=== PATIENT | female | born 1985 | race Caucasian/White ===

== ENCOUNTER 2016-08-11 13:46 | Emergency (ER) | payer BC ==
[2016-08-11 14:10] VITALS: BP 125/52
[2016-08-11] MEDS ORDERED: Sodium Chloride 0.9% 10 ML Syringe FLUSH PRN (14:27)
[2016-08-11] MEDS ORDERED: HYDROmorphone 0.5 MG/0.5 ML Syringe IVPUSH ONE (14:28)
[2016-08-11] MEDS ORDERED: Sodium Chloride 0.9% 1,000 ML IV ONE (14:28)
[2016-08-11] MEDS ORDERED: Ondansetron 4 MG/2 ML SDV IVPUSH ONE (14:28)
--- NOTE | 2016-08-11 14:37 | EDM.PDOC ---
ED HPI GENERAL MEDICAL PROBLEM - General Chief Complaint: INSECT CONTROL INSPECTOR Problem Stated Complaint: 8 WEEKS PREG/BLEEDING Time Seen by Provider: 08/11/16 14:13 Source of Information: Reports: Patient History Limitations: Reports: No Limitations - History of Present Illness INITIAL COMMENTS - FREE TEXT/NARRATIVE: The patient is a 31-year-old female who presents to the ED complaining of vaginal bleeding while 8 weeks . Patient states last night had light spotting with no abdominal discomfort. States late this morning developed heavy vaginal bleeding with abdominal cramping. Pain is localized rated a 8/10. She saturated 2 pads since onset and noticed increased bleeding throughout her drive to the emergency room. Last menstrual period was June 15 with a due date of March 22, 2016. was confirmed in office by her INSECT CONTROL INSPECTOR specialist. She has not had any ultrasounds obtained. She is on vitamins. history 5, para 3, miscarriage 2, zero. Patient denies fever/chills, nausea/vomiting, pain with urination, or any additional complaints. Patient recently completed a course of antibiotics to treat UTI. Patient states she has frequent UTIs with . 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: Reports: Other (see below) (none stated) Lower Abdomen Pain Score (Numeric/FACES): 8 - Related Data Allergies Allergy/AdvReac Type Severity Reaction Status Date / Time No Known Allergies Allergy Verified 08/11/16 14:04 Home Meds: Home Meds Nitrofurantoin Monohyd/M-Cryst [Macrobid 100 mg Capsule] 100 mg PO BID #10 capsule 08/11/16 [Rx] PNV95/Ferrous Fumarate/FA [ Tablet] 1 tab PO DAILY 08/11/16 [History] Past Medical History - Past Surgical History Female Surgical History: Reports: Section, Other (See Below) Other Female Surgeries/Procedures: 2 miscarriages Social & Family History - Tobacco Use Smoking Status *Q: Current Every Day Smoker Years of Tobacco use: 17 Packs/Tins Daily: 1 - Caffeine Use Caffeine Use: Reports: Coffee, Soda - Recreational Drug Use Recreational Drug Use: No ED ROS GENERAL - Review of Systems Review Of Systems: See Below Constitutional: Reports: No Symptoms Respiratory: Reports: No Symptoms Cardiovascular: Reports: No Symptoms GI/Abdominal: Reports: Abdominal Pain. Denies: Melena, Nausea (lower Horacio) : Reports: Other (history of UTIs). Denies: Dysuria, Flank Pain, Frequency, Hematuria Musculoskeletal: Denies: Back Pain Neurological: Reports: No Symptoms Hematologic/Lymphatic: Denies: Easy Bleeding ED EXAM - Physical Exam Exam: See Below Exam Limited By: No Limitations General Appearance: Alert, WD/WN, No Apparent Distress Ears: Hearing Grossly Normal Nose: Normal Inspection Throat/Mouth: Normal Voice, No Airway Compromise Neck: Normal Inspection, Supple Respiratory/Chest: No Respiratory Distress, Lungs Clear, Normal Breath Sounds, No Accessory Muscle Use, Chest Non-Tender Cardiovascular: Normal Peripheral Pulses, Regular Rate, Rhythm GI/Abdominal: Normal Bowel Sounds, Soft, No Organomegaly, No Distention, Tender (suprapubic region) (Female) Exam: Other (deferred) Back Exam: Normal Inspection. No: CVA Tenderness (L), CVA Tenderness (R) Extremities: Normal Inspection, Non-Tender, No Pedal Edema Neurological: Alert, Oriented, CN II-XII Intact, Normal Cognition, No Motor/ Sensory Deficits Psychiatric: Normal Affect, Normal Mood Skin Exam: Warm, Dry, Intact, Normal Color, No Rash Course - Vital Signs Last Recorded V/S: Last Vital Signs Temp 97.4 F 08/11/16 14:09 Pulse 82 08/11/16 14:09 Resp 20 08/11/16 14:09 BP 125/52 L 08/11/16 14:09 Pulse Ox 100 08/11/16 14:09 - Orders/Labs/Meds Orders: Active Orders 24 hr Category Date Time Status Peripheral IV Care [RC] . DIRECTED Care 08/11/16 14:27 Active OB Transvaginal [US] Stat Exams 08/11/16 16:04 Taken CULTURE URINE [RM] Stat Lab 08/11/16 14:45 Received Peripheral IV Insertion Adult [OM.PC] Stat Oth 08/11/16 14:27 Ordered Labs: Laboratory Tests 08/11/16 08/11/16 08/11/16 Range/Units 14:30 14:30 14:30 WBC 10.27 H (3.98-10.04) K/mm3 RBC 4.99 (3.98-5.22) M/mm3 Hgb 13.4 (11.2-15.7) gm/L Hct 41.1 (34.1-44.9) % MCV 82.4 (79.4-94.8) fl MCH 26.9 (25.6-32.2) pg MCHC 32.6 (32.2-35.5) g/dl RDW Std Deviation 46.0 (36.4-46.3) fL Plt Count 236 (182-369) K/mm3 MPV 11.2 (9.4-12.3) fl Neut % (Auto) 73.2 H (34.0-71.1) % Lymph % (Auto) 16.7 L (19.3-51.7) % Haskell % (Auto) 8.1 (4.7-12.5) % Eos % (Auto) 1.4 (0.7-5.8) Baso % (Auto) 0.4 (0.1-1.2) % Neut # (Auto) 7.53 H (1.56-6.13) K/mm3 Lymph # (Auto) 1.71 (1.18-3.74) K/mm3 Haskell # (Auto) 0.83 H (0.24-0.36) K/mm3 Eos # (Auto) 0.14 (0.04-0.36) K/mm3 Baso # (Auto) 0.04 (0.01-0.08) K/mm3 Sodium 143 (136-145) mEq/L Potassium 3.8 (3.5-5.1) mEq/L Chloride 110 H (98-107) mEq/L Carbon Dioxide 26 (21-32) mEq/L Anion Gap 10.8 (5-15) BUN 9 (7-18) mg/dL Creatinine 0.9 (0.55-1.02) mg/dL Est Cr Clr Drug Dosing 71.63 mL/min Estimated GFR (MDRD) > 60 (>60) mL/min BUN/Creatinine Ratio 10.0 L (14-18) Glucose 108 H (74-106) mg/dL Calcium 8.6 (8.5-10.1) mg/dL Total Bilirubin 0.4 (0.2-1.0) mg/dL AST 11 L (15-37) U/L ALT 23 (14-59) U/L Alkaline Phosphatase 68 (46-116) U/L C-Reactive Protein 1.2 H* (<1.0) mg/dL Total Protein 6.5 (6.4-8.2) g/dl Albumin 3.4 (3.4-5.0) g/dl Globulin 3.1 gm/dL Albumin/Globulin Ratio 1.1 (1-2) HCG, Qual Positive H (NEGATIVE) HCG, Quant 3344.0 mIU/mL Urine Color (Yellow) Urine Appearance (Clear) Urine pH (5.0-8.0) Ur Specific Clyman (1.005-1.030) Urine Protein (Negative) Urine Glucose (UA) (Negative) Urine Ketones (Negative) Urine Occult Blood (Negative) Urine Nitrite (Negative) Urine Bilirubin (Negative) Urine Urobilinogen (0.2-1.0) Ur Leukocyte Esterase (Negative) Urine RBC (0-5) /hpf Urine WBC (0-5) /hpf Urine WBC Clumps (NOT SEEN) /hpf Ur Epithelial Cells Ur Squamous Epith Cells (0-5) /hpf Urine Bacteria (FEW) /hpf Urine Mucus (FEW) /hpf Blood Type Gel Antibody Screen 08/11/16 08/11/16 Range/Units 14:30 14:45 WBC (3.98-10.04) K/mm3 RBC (3.98-5.22) M/mm3 Hgb (11.2-15.7) gm/L Hct (34.1-44.9) % MCV (79.4-94.8) fl MCH (25.6-32.2) pg MCHC (32.2-35.5) g/dl RDW Std Deviation (36.4-46.3) fL Plt Count (182-369) K/mm3 MPV (9.4-12.3) fl Neut % (Auto) (34.0-71.1) % Lymph % (Auto) (19.3-51.7) % Haskell % (Auto) (4.7-12.5) % Eos % (Auto) (0.7-5.8) Baso % (Auto) (0.1-1.2) % Neut # (Auto) (1.56-6.13) K/mm3 Lymph # (Auto) (1.18-3.74) K/mm3 Haskell # (Auto) (0.24-0.36) K/mm3 Eos # (Auto) (0.04-0.36) K/mm3 Baso # (Auto) (0.01-0.08) K/mm3 Sodium (136-145) mEq/L Potassium (3.5-5.1) mEq/L Chloride (98-107) mEq/L Carbon Dioxide (21-32) mEq/L Anion Gap (5-15) BUN (7-18) mg/dL Creatinine (0.55-1.02) mg/dL Est Cr Clr Drug Dosing mL/min Estimated GFR (MDRD) (>60) mL/min BUN/Creatinine Ratio (14-18) Glucose (74-106) mg/dL Calcium (8.5-10.1) mg/dL Total Bilirubin (0.2-1.0) mg/dL AST (15-37) U/L ALT (14-59) U/L Alkaline Phosphatase (46-116) U/L C-Reactive Protein (<1.0) mg/dL Total Protein (6.4-8.2) g/dl Albumin (3.4-5.0) g/dl Globulin gm/dL Albumin/Globulin Ratio (1-2) HCG, Qual (NEGATIVE) HCG, Quant mIU/mL Urine Color Red H (Yellow) Urine Appearance Turbid H (Clear) Urine pH 8.5 H (5.0-8.0) Ur Specific [place]man 1.020 (1.005-1.030) Urine Protein 3+ H (Negative) Urine Glucose (UA) Negative (Negative) Urine Ketones Trace H (Negative) Urine Occult Blood 3+ H (Negative) Urine Nitrite Positive H (Negative) Urine Bilirubin 2+ H (Negative) Urine Urobilinogen 1.0 (0.2-1.0) Ur Leukocyte Esterase 3+ H (Negative) Urine RBC Too numerous to cnt H (0-5) /hpf Urine WBC 10-20 H (0-5) /hpf Urine WBC Clumps Rare (NOT SEEN) /hpf Ur Epithelial Cells Not Reportable Ur Squamous Epith Cells 0-5 (0-5) /hpf Urine Bacteria Moderate H (FEW) /hpf Urine Mucus Not seen (FEW) /hpf Blood Type A POSITIVE Gel Antibody Screen Negative Meds: Medications Discontinued Medications Generic Name Dose Route Start Last Admin Trade Name Denis PRN Reason Stop Dose Admin Hydromorphone HCl 0.25 mg 08/11/16 14:28 08/11/16 14:48 Dilaudid IVPUSH 08/11/16 14:29 0.25 mg ONETIME ONE Administration Sodium Chloride 1,000 mls @ 999 mls/hr 08/11/16 14:28 08/11/16 14:47 Normal Saline IV 08/11/16 15:28 999 mls/hr ONETIME ONE Administration Nitrofurantoin Macrocrystals 100 mg 08/11/16 18:15 08/11/16 18:34 Macrobid PO 08/11/16 18:16 100 mg ONETIME ONE Administration Ondansetron HCl 4 mg 08/11/16 14:28 08/11/16 14:47 Zofran IVPUSH 08/11/16 14:29 4 mg ONETIME ONE Administration Sodium Chloride 10 ml 08/11/16 14:27 08/11/16 14:49 Saline Flush FLUSH 10 ml ASDIRECTED PRN Administration Keep Vein Open - Re-Assessments/Exams Free Text/Narrative Re-Assessment/Exam: 08/11/16 14:31 Ordered peripheral IV with normal saline 999 mls/hr, Zofran 4 mg IVP, and Dilaudid 0.25 mg IVP. Initial labs include: CBC, chem 14, CRP, UA, and hCG quantitative, HCG qualitative, and type and screen. Per nursing patient refused in and out cath. 08/11/16 15:35 less reviewed: White cell count 10.27, hemoglobin 13.4, percent is 73.2, neutrophil number simplify 3, hCG was positive. UA revealed occult blood 3+, nitrites positive, leukocyte esterase positive, RBCs too many to count , WBC 10-20, WBC clumps rare. Ordered urine culture. Remaining labs are pending. C14 was essentially normal. HCG quantitative 3344. OB transvaginal ultrasound. ultrasound impression: There is a cystic area in the uterus that may be gestational sac. Based on last menstrual period there should be a pole and cardiac activity, neither of which are seen. This suggests blighted oval for gestational age earlier than that based on last menstrual period. The left ovary has a 1.9 cm simple cyst. The ovaries are otherwise unremarkable. Suggest followup ultrasound of the pelvis in 5-10 days may be of benefit to reassess for viability. 08/11/16 18:[address] 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 Suggested performing a speculum exam to determine if cervical OS is open. If bleeding has slowed down patient can be evaluated by her INSECT CONTROL INSPECTOR specialists. Patient is most likely having a miscarriage. Discussed this with the patient. Patient has refused to have a speculum exam and will see her INSECT CONTROL INSPECTOR specialist in [place] this coming Saturday. In addition she does have a positive UTI and will treat her with Macrobid 100 milligrams p.o. Urine cultures have been obtained. Departure - Departure Time of Disposition: 18:19 Disposition: Home, Self-Care 01 Condition: good Clinical Impression: Vaginal bleeding in patient at less than 20 weeks gestation UTI (urinary tract infection) Qualifiers: Urinary tract infection type: site unspecified Hematuria presence: with hematuria Qualified Code(s): N39.0 - Urinary tract infection, site not specified - Discharge Information Prescriptions: Nitrofurantoin Monohyd/M-Cryst [Macrobid 100 mg Capsule] 100 mg PO BID #10 capsule Instructions: Urinary Tract Infection, Adult Referrals: Ezequiel Garcia MD [Primary Care Provider] - Forms: ED Department Discharge Additional Instructions: Followup with INSECT CONTROL INSPECTOR specialist this coming Saturday for further evaluation and treatment. If the vaginal bleeding increases to one pad per hour for greater than 2 hours please be evaluated at the closest ER for further examination and treatment. Take Tylenol and ibuprofen in alternating fashion for pain. For UTI take Macrobid 100 mg twice a day for 5 days. Please see PCP to ensure resolution of urinary tract infection at conclusion of therapy. Urine cultures have been obtained of changes may be made to antibiotic therapy we notified. Return to the ED for any new or worsening symptoms. - My Orders Last 24 Hours: My Active Orders 08/11/16 14:27 Peripheral IV Care [RC] . DIRECTED Peripheral IV Insertion Adult [OM.PC] Stat 08/11/16 14:45 CULTURE URINE [RM] Stat 08/11/16 16:04 OB Transvaginal [US] Stat - Assessment/Plan Last 24 Hours: My Active Orders 08/11/16 14:27 Peripheral IV Care [RC] . DIRECTED Peripheral IV Insertion Adult [OM.PC] Stat 08/11/16 14:45 CULTURE URINE [RM] Stat 08/11/16 16:04 OB Transvaginal [US] Stat
[2016-08-11] MEDS ORDERED: Nitrofurantoin Monohydrate/Macrocrystalline 100 MG Cap PO ONE (18:15)
--- NOTE | 2016-08-13 11:14 | US ---
First trimester obstetrical ultrasound: Multiple real-time images were obtained transvaginally. Comparison: No previous study Dates: LMP: LMP given as 06/15/16, RU 03/22/17, gestational age 8 weeks 1 day Small cystic area within the endometrial cavity is seen. Size of the gestational sac does not correlate with dates by LMP. No pole or yolk sac is identified. Small amount of free fluid is seen which is incidental. Maternal adnexa are unremarkable. Impression: 1. Small cystic area within the endometrial cavity. Differential includes very early which is discrepant from dates given by LMP. Finding may also represent blighted ovum. Recommend follow-up ultrasound study in 11 days to further evaluate. Diagnostic code #3 Agree with preliminary report issued by [employer] ([employer] preliminary report dictated on 08/11/16, 6:53 PM Central Time)
== END 2016-08-11 18:55 | disposition home or self-care (01) ==
LOC: JD.ED 13:46
DX: O20.9 Hemorrhage in early pregnancy, unspecified (principal); O23.41 Unspecified infection of urinary tract in pregnancy, first trimester; O99.331 Smoking (tobacco) complicating pregnancy, first trimester; F17.210 Nicotine dependence, cigarettes, uncomplicated; Z3A.08 8 weeks gestation of pregnancy
CPT/HCPCS: 36415; 76817; 80053; 81001; 84702; 84703; 85025; 86140; 86850; 86900; 86901; 87086; 87088; 87186; 96361; 96374; 96375; 99284; A9270; J1170; J2405; J7040; J7050

== ENCOUNTER 2021-07-14 10:13 | Emergency (ER) | payer BC ==
[2021-07-14 10:25] VITALS: BP 123/71; PULSE 89
[2021-07-14] MEDS ORDERED: Sodium Chloride 0.9% 10 ML Syringe FLUSH PRN ×2 (10:36→12:39)
[2021-07-14] MEDS ORDERED: Iopamidol 755 Mg/ML 100 ML Bottle IVPUSH ONE (12:39)
[2021-07-14] MEDS ORDERED: Sodium Chloride 0.9% 100 ML IV SCH (12:45)
== END 2021-07-14 14:20 | disposition home or self-care (01) ==
LOC: JD.ED 10:13
DX: O99.891 Other specified diseases and conditions complicating pregnancy (principal); R07.89 Other chest pain; Z3A.22 22 weeks gestation of pregnancy; Z86.16 Personal history of COVID-19; Z79.82 Long term (current) use of aspirin; Z72.0 Tobacco use
CPT/HCPCS: 36415; 71045; 71275; 80053; 84484; 85025; 85379; 93005; 99285; J3490; Q9967; 93010; 99284